=== PATIENT | male | born 1980 | race African-American/Black ===

== ENCOUNTER 2017-01-06 07:24 | Emergency (ER) | payer OTHER ==
[~2017-01-06] VITALS: Ht 162.6 cm; Wt 93.0 kg
--- NOTE | ~2017-01-06 | CR63 ---
[facility] A Service of [facility] & [facility] RADIOLOGY TEXT RESULTS PATIENT: ASHLIE HILL LOCATION: [facility] : 80 UNIT #: [id number] AGE: [address]: Mita Fry SEX: M ORDER DR: [id number] [facility] [address] [place], [place] [address] [id number] E MR#: [id number] Acc #: [id number] NAME: ASHLIE HILL. : 1980 SEX: M STUDY DATE/TIME: 01/06/2017 8:36 UNIT: [facility] ROOM: STUDY DESCRIPTION: CR Chest 2 View Attending Physician: Mita Fry Pa-C Ordering Physician: Mita Fry Pa-C Primary Care Physician: No Primary Care Physician MEDICAL IMAGING REPORT This report is preliminary unless electronic signature is present EXAM Chest 01/06/2017. HISTORY 36-year-old woman midsternal chest pain, short of air. Symptoms x1 week. COMPARISON Portable chest 02/03/2015. Single AP portable chest demonstrates normal stable cardiac size and configuration. Hilar structures and mediastinal contours are preserved. Bilateral lungs are expanded and clear. I see no infiltrate and no effusion. IMPRESSION Negative and stable chest. No acute finding. Dictated by... Aaron López M.D. THIS IS AN ELECTRONICALLY VERIFIED REPORT Aaron López M.D. at 01/06/2017 12:01 PM IVA/dewey TD: 01/06/2017 11:30 JOB #: [id number] MEDICAL IMAGING REPORT Page 1 of 1 COPY
[~2017-01-06 07:24] MED LIST: ALEVE; PHENERGAN PO; PHENERGAN PR; PHENERGAN25 MG; PHENERGAN25 MG PO
== END 2017-01-06 09:49 | disposition home or self-care (01) ==
LOC: CED 07:24
DX: J06.9 Acute upper respiratory infection, unspecified (principal); I10 Essential (primary) hypertension; F17.210 Nicotine dependence, cigarettes, uncomplicated
CPT/HCPCS: 71020; 99284